=== PATIENT | female | born 1995 | race Two or more races ===

== ENCOUNTER 2018-11-24 22:01 | Emergency (ER) | payer SELFPAY ==
[~2018-11-24] VITALS: Ht 157.5 cm; Wt 52.2 kg
[2018-11-24 22:09] VITALS: BP 126/84
[2018-11-24] MEDS ORDERED: MVI in SODIUM CHLORIDE 0.9% 1,010 ML ONE (23:16)
[2018-11-24] MEDS ORDERED: THIAMINE 100mg/ml INJ (200mg/2ml VIAL) ONE (23:18)
[2018-11-25] MEDS ORDERED: ACETAMINOPHEN 650 MG RECT SUPP PR ONE (04:15)
[2018-11-25] MEDS ORDERED: THIAMINE INJ 100 MG, MULTIPLE VITAMIN 10 ML, FOLIC ACID 1 MG, MAGNESIUM SULF SDV 50% 8 ... IV SCH ×10 (12:00)
== END 2018-11-25 03:05 | disposition home or self-care (01) ==
LOC: ER 22:01 → EDBD 22:01 → ER 11-25 03:05
DX: S01.81XA Laceration without foreign body of other part of head, initial encounter (principal); W01.0XXA Fall on same level from slipping, tripping and stumbling without subsequent striking against object, initial encounter; Y93.89 Activity, other specified; Y99.8 Other external cause status; Y92.89 Other specified places as the place of occurrence of the external cause
CPT/HCPCS: 70450; 99284; J3411; J3475; J7030